=== PATIENT | female | born 1980 | race Two or more races ===

== ENCOUNTER 2024-07-12 01:08 | Emergency (ER) | payer BC, MEDICAID, SELFPAY ==
[2024-07-12 01:09] VITALS: BMI 31.1
[2024-07-12 01:26] VITALS: BP 122/69; PULSE 99; RESP 18; TEMP 37.1; O2SAT 100
--- NOTE | 2024-07-12 01:52 | XR_ITS ---
EXAMINATION: Ankle, left 3 views . Technique: Ankle AP, oblique, lateral 3 views Date and time of exam: July 12, 2024 1400 hrs. Indications: Injury to the ankle today, ankle pain. Findings: Acute fracture fibular shaft distally, no significant displacement No ankle dislocation Impression: Acute fracture distal fibular shaft
[2024-07-12] MEDS: KETOROLAC INJ 60 MG/2 ML VIAL IM (01:58)
--- NOTE | 2024-07-12 03:21 | PD.EDANKLE ---
Lower Extremity Injury RME/HPI General Chief Complaint: Ankle/Foot Injury Stated Complaint: LEFT ANKLE INJURY Time Seen by Provider: 07/12/24 01:52 Arrival date/time: 07/12/24 01:08 44F with no significant PMH presents to ED with L ankle pain after someone fell on top of it while they were dancing. Patient denies hitting her head. Limitations: no limitations Related Data Previous Rx's ?Medication ?Instructions ?Recorded tramadol 50 mg tablet 50 mg PO BID PRN pain #20 tabs 07/12/24 Allergies Allergy/AdvReac Type Severity Reaction Status Date / Time morphine Allergy Severe Difficulty Verified 10/28/22 17:51 Breathing Review of Systems Review of Systems Systems Reviewed: All systems reviewed, normal except as documented Constitutional Constitutional: Reports system reviewed and no additional complaints, except as documented, Denies fever(s) and Denies headache(s) ENT Ears, Nose, Mouth, and Throat: Denies disequilibrium and Denies headache(s) Cardiovascular Cardiovascular: Reports system reviewed and no additional complaints, except as documented, Denies chest pain and Denies dyspnea Respiratory Respiratory: Reports system reviewed and no additional complaints, except as documented, Denies cough and Denies dyspnea Gastrointestinal Gastrointestinal: Reports system reviewed and no additional complaints, except as documented, Denies abdominal pain, Denies nausea and Denies vomiting Musculoskeletal Musculoskeletal: Reports as per HPI and Reports arthralgias Neurologic Neurologic: Reports system reviewed and no additional complaints, except as documented, Denies confusion, Denies disequilibrium and Denies headache(s) Psychiatric Psychiatric: Denies confusion Past Medical History Social History SMOKING STATUS: Never smoker ED Exam General Limitations: Present no limitations General appearance: Present alert and in no apparent distress Head Head exam: Present atraumatic Eye Eye exam: Present normal appearance, PERRL and EOMI ENT ENT exam: Present normal exam, normal oropharynx and mucous membranes moist Neck Neck exam: Present normal inspection, full ROM and trachea midline Chest Chest inspection: Present normal inspection and symmetric chest wall rise Respiratory Respiratory exam: Present normal lung sounds bilaterally Cardiovascular Cardiovascular exam: Present regular rate, normal rhythm and normal heart sounds Abdominal Exam Abdominal exam: Present soft and normal bowel sounds Expanded Lower Extremity Exam Ankle exam: Present tenderness, swelling and deformity (mild L ankle) Back Exam Back exam: Present normal inspection and full ROM Neurological Exam Neurological exam: Present alert, oriented X3 and CN II-XII intact Psychiatric Psychiatric exam: Present normal affect and normal mood Skin Skin exam: Present warm, dry, intact and normal color Course Quality Measures none Orders Category Date Time Status Crutches .NOW Care 07/12/24 02:12 Active Splint / Immobilizer STAT Care 07/12/24 02:12 Active XR ankle comp LT min 3V Stat Exams 07/12/24 01:52 Taken Ketorolac Inj [Toradol Inj] Med 07/12/24 01:54 Discontinued 60 mg IM X1 ONE Vital Signs Vital signs: Vital Signs Temperature 98.8 F 07/12/24 01:26 Pulse Rate 99 07/12/24 01:26 Respiratory Rate 18 07/12/24 01:26 Blood Pressure 122/69 07/12/24 01:26 Pulse Oximetry (%) 100 07/12/24 01:26 Oxygen Delivery Method Room Air 07/12/24 01:26 O2 at 100% on RA and WNLs Extremity Injury, Lower MDM Narrative MDM Narrative:: 44F with no significant PMH presents to ED with L ankle pain after someone fell on top of it while they were dancing. Patient denies hitting her head. Physical exam reveals L ankle swelling/tenderness and mild deformity. ROM limited, but patient can move toes w/o issue. Cap refill normal. Distal pulses present. Patient is afebrile, alert, but appears to be in pain XR reveals mildly displaced L fibular fx and non-displaced spiral tibial fx. Given splint, crutches, and counseling program leader. Patient is allergic to opioids but confirms she's had tramadol w/o issue during her previous hip surgery. Patient data External records reviewed:: None Clinical information provided by:: patient Social determinants that could affect healthcare access:: none Patient has the following chronic illnesses:: none How is presenting disease/condition affected by chronic disease/condition?: no chronic disease Evaluation data The following diagnostics were reviewed and interpreted by me:: radiology exam(s) Lab and/or radiology exams considered but not ordered:: ordered Interpretation Summary: above Medications / Prescriptions Medications or Prescriptions considered but not ordered:: ordered Medication administrations:: Medication Administration History Discontinued Medications Ketorolac Tromethamine (Ketorolac Inj 60 Mg/2 Ml Vial) 60 mg IM X1 ONE Stop: 07/12/24 01:55 Last Admin: 07/12/24 01:58 Dose: 60 mg Documented By: EE above Consultations Consultation(s) initiated? (list below): No Diagnosis Extremity Injury, Lower Differential Diagnosis: ankle sprain and strain, acute internal derangement of knee, fracture of femur, fracture of hip, puncture wound of foot, fracture of toe and ankle fracture Most likely diagnosis given after review of the tests above:: ankle fx Admission Indicated Admission indicated?: not indicated Admission Request Was there a request for admission?: No Disposition Plan Disposition Plan: Discharge Discharge Attestation Discharge Attestation: The patient and all family members were given an opportunity to ask questions and understood the discharge instructions. Discharge instructions specifically effects, indications for sooner follow up or return to the emergency department, and the expected course of current diagnosis. Patient condition: Stable Discharge Plan Plan Patient Disposition: HOME (Self Care) Disposition Comment: Stable Prescriptions/Referrals Prescriptions/Med Rec: New tramadol 50 mg tablet 50 mg PO BID PRN (Reason: pain) Qty: 20 0RF Problem List Clinical Impression: Ankle fracture Patient/Caregiver Discharge Instructions Education Materials: ED Fracture, Lower Extremity Additional Instructions: Please follow-up with PCP within 24-48 hours and return immediately if symptoms worsen. Recommend seeing ortho soon. Likely will need surgery. Print Language: Czech Stand Alone Forms: Patient Portal Info Letter VIKY/ANTIONETTE Supervising Physician VIKY/ANTIONETTE Supervising Physician: Dr. Espinal
== END 2024-07-12 02:50 | disposition home or self-care (01) ==
LOC: SERX 02:51
PROVIDERS: Emergency Provider Emergency Medicine
DX: S82.892A Other fracture of left lower leg, initial encounter for closed fracture (principal); W50.0XXA Accidental hit or strike by another person, initial encounter; Y93.41 Activity, dancing
CPT/HCPCS: 29515; 73610; 96372; 99283; J1885